=== PATIENT | male | born 2000 | race American Indian/Alaskan Native ===

== ENCOUNTER 2020-10-07 21:40 | Emergency (ER) | payer OTHER ==
[2020-10-07] MEDS ORDERED: IBUPROFEN 400 MG TAB PO ONE (22:26)
[2020-10-07] MEDS ORDERED: ACETAMINOPHEN 325 MG TAB PO ONE (22:26)
--- NOTE | 2020-10-07 22:28 | Emergency Department Report ---
ED General Adult HPI - General Chief complaint: Adult Asthma Stated complaint: asthma PUI?: Yes Time Seen by Provider: 10/07/20 21:56 Source: patient, EMS ( EMS documentation not available at time of chart dictation ), RN notes reviewed Mode of arrival: Stretcher Limitations: No Limitations - History of Present Illness Initial comments: The patient was evaluated in the emergency department for symptoms described in the history of present illness. He/she was evaluated in the context of the global COVID-19 pandemic, which necessitated consideration that the patient might be at risk for infection with the virus that causes COVID-19. Institutional protocols and algorithms that pertain to the evaluation of patients at risk for COVID-19 are in a state of rapid change based on information released by regulatory bodies including the CDC and federal and state organizations. These policies and algorithms were followed during the patient's care in the emergency department. Please note that these policies, procedures and recommendations changed on a rapid basis. During the entire history and physical examination, I had on complete personal protective equipment. This is a 20-year-old gentleman. He is not known to myself previously. He reports a history of asthma, diagnosed while a child, no intubations. He also h as a history of intermittent tobacco use, and anxiety. He is brought to the hospital by EMS with a complaint of resolved anxiety, and shortness of breath. Patient was given albuterol prior to my evaluation. The patient denies headache, neck pain, abdominal pain, vomiting, diaphoresis, he denies travel, surgery, leg pain and leg swelling, and he denies DVT and pulmonary embolism risk factors. He has intermittent chronic central chest pressure, which does not radiate to the back, arms or neck. He states that he feels mostly back to his baseline, only a little bit anxious at this time. The patient does not have a local primary care doctor. The patient denies loss of taste, loss of smell, diarrhea, body aches, and Covid exposure -: Sudden (Symptoms started suddenly today, but patient has been having intermittent chest discomfort for weeks and months) Location: chest Quality: aching Consistency: intermittent Improves with: medication, rest Worsens with: other (Anxiety) - Related Data Previous Rx's Medication Instructions Recorded Last Taken Type Acetaminophen [Non-Aspirin Extra 500 mg PO Q6HR PRN #30 tablet 10/07/20 Unknown Rx Strength] Albuterol Sulfate [Proair 90 mcg IH Q4HR PRN #2 aer.pow.ba 10/07/20 Unknown Rx Respiclick] Ibuprofen [Motrin] 600 mg PO Q8H PRN #30 tablet 10/07/20 Unknown Rx Allergies Allergy/AdvReac Type Severity Reaction Status Date / Time No Known Allergies Allergy Unverified 10/07/20 21:46 ED Review of Systems ROS: Stated complaint: BENNY Other details as noted in HPI Constitutional: denies: fever Eyes: denies: eye discharge ENT: denies: congestion Respiratory: shortness of breath, wheezing Cardiovascular: chest pain Gastrointestinal: denies: abdominal pain Musculoskeletal: myalgia (Chronic knee pain) Psychiatric: anxiety Hematological/Lymphatic: denies: easy bleeding ED Past Medical Hx - Past Medical History Previous Medical History?: Yes Hx Asthma: Yes - Surgical History Past Surgical History?: No - Social History Smoking Status: Current Every Day Smoker - Medications Home Medications: Home Medications Medication Instructions Recorded Confirmed Last Taken Type Acetaminophen [Non-Aspirin Extra 500 mg PO Q6HR PRN #30 tablet 10/07/20 Unknown Rx Strength] Albuterol Sulfate [Proair 90 mcg IH Q4HR PRN #2 aer.pow.ba 10/07/20 Unknown Rx Respiclick] Ibuprofen [Motrin] 600 mg PO Q8H PRN #30 tablet 10/07/20 Unknown Rx ED Physical Exam - General Limitations: No Limitations General appearance: alert, in no apparent distress - Head Head exam: Present: atraumatic, normocephalic - Eye Eye exam: Present: normal appearance, EOMI. Absent: nystagmus - ENT ENT exam: Present: normal exam, normal orophraynx, mucous membranes moist, normal external ear exam - Neck Neck exam: Present: normal inspection, full ROM. Absent: tenderness, meningism us - Respiratory Respiratory exam: Present: normal lung sounds bilaterally, chest wall tenderness. Absent: respiratory distress, wheezes, rales, rhonchi, stridor, accessory muscle use, decreased breath sounds, prolonged expiratory - Cardiovascular Cardiovascular Exam: Present: regular rate, normal rhythm, normal heart sounds. Absent: bradycardia, tachycardia, irregular rhythm, systolic murmur, diastolic murmur, rubs, gallop - GI/Abdominal GI/Abdominal exam: Present: soft. Absent: distended, tenderness, guarding, rebound, rigid, pulsatile mass - Rectal Rectal exam: Present: deferred - Extremities Exam Extremities exam: Present: normal inspection, full ROM, other (2+ pulses noted in the bilateral upper and lower extremities. There is no palpable cord. negative Homans sign. Muscular compartments are soft. The pelvis is stable.). Absent: pedal edema, calf tenderness - Back Exam Back exam: Present: normal inspection, full ROM. Absent: tenderness, CVA tenderness (R), CVA tenderness (L), paraspinal tenderness, vertebral tenderness - Neurological Exam Neurological exam: Present: alert, normal gait, other (No facial droop. Tongue midline. Extraocular movements intact bilaterally. Facial sensation intact to light touch in V1, V2, V3 distribution bilaterally. 5 and a 5 strength in 4 extremities. Sensation intact to light touch in 4 extremities.). Absent: motor sensory deficit - Psychiatric Psychiatric exam: Present: anxious - Skin Skin exam: Present: warm, dry, intact, normal color. Absent: rash ED Course Vital Signs 10/07/20 10/07/20 10/07/20 21:46 22:16 22:30 Temperature 98.4 F Pulse Rate 83 79 75 Pulse Rate [ Throughout] Respiratory 18 13 12 Rate Respiratory Rate [ Throughout] Blood Pressure 146/78 132/72 142/85 O2 Sat by Pulse 98 98 97 Oximetry O2 Sat by Pulse Oximetry [ Digit-Finger] 10/07/20 10/07/20 10/07/20 22:46 23:00 23:45 Temperature Pulse Rate 74 78 Pulse Rate [ Throughout] Respiratory 13 17 18 Rate Respiratory Rate [ Throughout] Blood Pressure 135/81 141/82 O2 Sat by Pulse 97 98 97 Oximetry O2 Sat by Pulse Oximetry [ Digit-Finger] 10/08/20 10/08/20 00:51 01:37 Temperature Pulse Rate Pulse Rate [ 68 Throughout] Respiratory Rate Respiratory 20 Rate [ Throughout] Blood Pressure O2 Sat by Pulse Oximetry O2 Sat by Pulse 99 Oximetry [ Digit-Finger] - Reevaluation(s) Reevaluation #1: 10/07/20 23:43 Differential diagnosis, including but not limited to: Reactive airway disease, costochondritis, COVID-19, anxiety, pneumonia, general medical examination Assessment and plan: 20-year-old gentleman, who is not currently tachycardic, tachypneic or hypoxic, denies DVT and pulmonary embolism risk factors, who is low risk by Wells criteria for pulmonary embolism, who is PERC negative, not hypoxic at this time, saturating at 99% on room air, with a benign and unremarkable physical examination, and clear x-ray of the chest. We will obtain EKG. We will treat his pain. Patient reassessed multiple times, speaking on his cell phone, does not appear to be in any acute distress. Ambulatory trial reviewed and appreciated, patient not significantly symptomatic. Patient suitable to be discharged with as needed albuterol, no wheezing at this time, do not see indication for steroids, he can purchase an [id number] [facility] pulse oximeter device, self monitor symptoms. 10/08/20 00:07 Patient resting comfortably in stretcher. He is saturating at 99% on room air. EKG shows rightward axis deviation. I have very low suspicion for pulmonary embolism, however, given rightward axis deviation, history of shortness of b reath, will check laboratory studies including D-dimer to risk stratify for pulmonary embolism. Discussed this with the patient. He has articulated understanding. 10/08/20 01:04 Patient walking around the emergency room. He does not appear to be in any acute distress. Laboratory studies pending. 10/08/20 01:36 patient playing on cell phone no distress vitals unremarkable at this time d dimer pending. delay secondary to instrument qc at this time 10/08/20 01:39 Final reevaluation. D-dimer negative. Patient suitable for discharge - Pulse Oximetry Interpretation Digit-Finger Initial Pulse Oximetry Readin O2 Sat by Pulse Oximetry: 99 Actions Taken: none ED Medical Decision Making - Lab Data Result diagrams: 10/08/20 00:12 10/08/20 00:12 Vital Signs 10/07/20 10/07/20 10/07/20 21:46 22:16 22:30 Temperature 98.4 F Pulse Rate 83 79 75 Respiratory 18 13 12 Rate Blood Pressure 146/78 132/72 142/85 O2 Sat by Pulse 98 98 97 Oximetry 10/07/20 10/07/20 22:46 23:00 Temperature Pulse Rate 74 78 Respiratory 13 17 Rate Blood Pressure 135/81 141/82 O2 Sat by Pulse 97 98 Oximetry - EKG Data -: EKG Interpreted by De EKG shows normal: sinus rhythm Rate: normal - EKG Data When compared to previous EKG there are: previous EKG unavailable 10/08/20 00:07 EKG interpreted 23: 46 Sinus rhythm, 66 bpm. Rightward axis deviation. High left ventricular voltage. Intervals within normal limits. There is no prior for comparison. The EKG is not a STEMI peer - Radiology Data Radiology results: pending, report reviewed, image reviewed X-ray of the chest is negative for acute disease CHEST PA AND LATERAL VIEWS INDICATION: chest wall pain. COMPARISON: None FINDINGS: Support devices: None Heart: Normal Lungs/Pleura: No acute pulmonary or pleural findings. IMPRESSION: 1. No significant abnormality. Signer Name: Serafin Galloway MD Signed: 10/07/2020 9:58 PM Workstation Name: [id number] Critical care attestation.: If time is entered above; I have spent that time in minutes in the direct care of this critically ill patient, excluding procedure time. ED Disposition Clinical Impression: History of reactive airway disease, History of chest pain Disposition: TO HOME OR SELFCARE Is pt being admited?: No Does the pt Need Aspirin: No Condition: Good Instructions: Asthma, Adult, [id number] Additional Instructions: Take the medications as needed and directed. Make certain to wash hands frequently, thoroughly, and often. Please follow-up with an outpatient primary care doctor within the next 5 to 7 days. Avoid consumption of tobacco, and smoke products. Recommend outpatient testing for COVID-19. We also recommend that the patient purchase an [id number] pulse oximeter, to monitor home oxygen saturations. He may purchase a device like this on [employer], or through a local medical supply store, such as [employer], or a local pharmacy. Please return to the emergency room right away with new pain, worsened pain, m igration of pain, projectile vomiting, change in mental status, confusion, inability to tolerate liquid feeds, new, worsened or different symptoms not present on the initial emergency room evaluation. Recommend that patient wear a mask when not alone. Prescriptions: Ibuprofen [Motrin] 600 mg PO Q8H PRN #30 tablet PRN Reason: Pain Acetaminophen [Non-Aspirin Extra Strength] 500 mg PO Q6HR PRN #30 tablet PRN Reason: Pain , Severe (7-10) Albuterol Sulfate [Proair Respiclick] 90 mcg IH Q4HR PRN #2 aer.pow.ba PRN Reason: Wheezing Referrals: FRANCISCO KWON MD [Staff Physician] - 3-5 Days [facility] [Provider Group] - 3-5 Days Heart Score - HEART Score History: Slightly suspicious EKG: Non-specific Age: < 45 Risk factors: 1-2 risk factors Troponin: < normal limit HEART Score: 2 - EKG Read Time Time EKG Completed: 23:43 EKG Read Time: 23:46 - Critical Actions Critical Actions: 0-3 pts:0.9-1.7%risk of adverse cardiac event.Candidate for discharge
--- NOTE | 2020-10-07 23:02 | XRay Report ---
CHEST PA AND LATERAL VIEWS INDICATION: chest wall pain. COMPARISON: None FINDINGS: Support devices: None Heart: Normal Lungs/Pleura: No acute pulmonary or pleural findings. IMPRESSION: 1. No significant abnormality. Signer Name: Serafin Galloway MD Signed: 10/07/2020 10:58 PM Workstation Name: [id number]
[2020-10-08] MEDS ORDERED: ALBUTEROL 2.5 MG/3 ML NEBU IH ONE (00:06)
[2020-10-08 01:02] LABS: Hematocrit 45.2 % (35.5-45.6); Hemoglobin 14.7 gm/dl (11.8-15.2); Mean Corpuscular HGB Conc 33 % (32-34); Mean Corpuscular Volume 88 fl (84-94); Platelet Count 321 K/mm3 (140-440); Red Blood Count 5.14 M/mm3 (3.65-5.03); Red Cell Distribution Width 13.3 % (13.2-15.2)
[2020-10-08 01:07] LABS: BUN/Creatinine Ratio 12; Blood Urea Nitrogen 12 mg/dL (9-20); Hemolysis Index 4
[2020-10-08] MEDS ORDERED: POTASSIUM CHLORIDE ER 20 MEQ TAB PO ONE (01:16)
[2020-10-08 01:45] VITALS: BP 124/73
--- NOTE | 2020-10-09 10:45 | Electrocardiograph Report ---
[facility] Test Date: 2020-10-07 Test Time: 23:01:56 Pat Name: PATY ROACH Department: Room: Gender: M [employer] Operator: PIETRO : 2000 Requested By: MARIANELA ANAND Order Number: [id number] Reading MD: Martin Samayoa Measurements Intervals Beatty Rate: 71 P: 72 MO: 154 QRS: 100 QRSD: 86 T: 65 QT: 379 QTc: 414 Interpretive Statements Sinus rhythm ST elev, probable normal early repol pattern No previous ECG available for comparison Electronically Signed On 10-09-2020 10:45:06 EDT by Martin Samayoa
== END 2020-10-08 01:44 | disposition home or self-care (01) ==
LOC: ED 21:40
DX: J45.909 Unspecified asthma, uncomplicated (principal); R07.89 Other chest pain; F17.200 Nicotine dependence, unspecified, uncomplicated; Z79.1 Long term (current) use of non-steroidal anti-inflammatories (NSAID); Z79.899 Other long term (current) drug therapy
CPT/HCPCS: 36415; 71046; 80048; 82550; 83735; 84484; 85027; 85379; 85610; 93005; 94640; 94644

== ENCOUNTER 2020-10-28 14:13 | Observation (INO) | payer OTHER ==
[~2020-10-28 14:13] MED LIST: MAGNESIUM SULFATE 2 GM/50 ML BAG IV ONE; methylPREDNISolone Sod Succinate 125 MG/2 ML INJ ONE
[2020-10-28] MEDS ORDERED: EPINEPHrine/PF 1 MG/1 ML INJ SUB-Q ONE (14:19)
[2020-10-28] MEDS ORDERED: MAGNESIUM SULFATE 2 GM/50 ML BAG IV ONE (14:19)
[2020-10-28] MEDS ORDERED: IPRATROPIUM/ALBUTEROL SULFATE 3 ML AMPUL.NEB IH ONE (14:19)
[2020-10-28] MEDS ORDERED: ALBUTEROL 2.5 MG/3 ML NEBU IH ONE ×2 (14:19→15:16)
[2020-10-28] MEDS ORDERED: methylPREDNISolone Sod Succinate 125 MG/2 ML INJ IV ONE (14:19)
--- NOTE | 2020-10-28 15:18 | XRay Report ---
CHEST 1 VIEW 10/28/2020 2:12 PM INDICATION / CLINICAL INFORMATION: Severe dyspnea, asthma. COMPARISON: 2 views of the chest from 10/07/2020. FINDINGS: SUPPORT DEVICES: None. HEART / MEDIASTINUM: No significant abnormality. LUNGS / PLEURA: Clear lungs. No significant pleural effusion. No pneumothorax. ADDITIONAL FINDINGS: No significant additional findings. IMPRESSION: 1. No acute abnormality of the chest. Signer Name: Tony Fox MD Signed: 10/28/2020 3:14 PM Workstation Name: [id number]
[2020-10-28 15:58] LABS: Basophils # (Auto) 0.1 K/mm3 (0.0-0.1); Basophils % (Auto) 0.6 % (0.0-1.8); Eosinophils # (Auto) 0.5 K/mm3 (0.0-0.4); Eosinophils % (Auto) 3.1 % (0.0-4.3); Hematocrit 45.7 % (35.5-45.6); Lymphocytes # (Auto) 1.9 K/mm3 (1.2-5.4); Mean Corpuscular HGB Conc 33 % (32-34); Mean Corpuscular Volume 87 fl (84-94); Monocytes # (Auto) 1.4 K/mm3 (0.0-0.8); Monocytes % (Auto) 9.8 % (0.0-7.3); Platelet Count 412 K/mm3 (140-440); Red Blood Count 5.24 M/mm3 (3.65-5.03); Red Cell Distribution Width 12.8 % (13.2-15.2)
[2020-10-28 16:03] LABS: BUN/Creatinine Ratio 8; Blood Urea Nitrogen 8 mg/dL (9-20); Calcium 8.9 mg/dL (8.4-10.2); Hemolysis Index 54
--- NOTE | 2020-10-28 17:21 | Emergency Department Report ---
ED Shortness of Breath HPI - General Chief Complaint: Adult Asthma Stated Complaint: ASTHMA Time Seen by Provider: 10/28/20 14:19 Source: patient Mode of arrival: Ambulatory Limitations: No Limitations - History of Present Illness Initial Comments: Chief complaint: Asthma attack HPI: This is a 20-year-old male with history of asthma no previous history of intubation who presents with severe shortness of breath wheezing gradual onset several days ago. History limited due to severe shortness of breath MD Complaint: shortness of breath, "asthma attack" -: Gradual, days(s) (Several days) Severity: severe Consistency: constant Improves With: nothing Worsens With: exertion Known History Of: asthma - Related Data Previous Rx's Medication Instructions Recorded Last Taken Type Acetaminophen [Non-Aspirin Extra 500 mg PO Q6HR PRN #30 tablet 10/07/20 Unknown Rx Strength] Albuterol Sulfate [Proair 90 mcg IH Q4HR PRN #2 aer.pow.ba 10/07/20 Unknown Rx Respiclick] Ibuprofen [Motrin] 600 mg PO Q8H PRN #30 tablet 10/07/20 Unknown Rx Allergies Allergy/AdvReac Type Severity Reaction Status Date / Time No Known Allergies Allergy Unverified 10/07/20 21:46 ED Review of Systems ROS: Stated complaint: ASTHMA Other details as noted in HPI Comment: Unobtainable due to pts medical conditions (Limited due to severe work of breathing severe shortness of breath) ED Past Medical Hx - Past Medical History Previous Medical History?: Yes Hx Asthma: Yes (Has not been previously intubated) - Social History Smoking Status: Unknown if ever smoked - Medications Home Medications: Home Medications Medication Instructions Recorded Confirmed Last Taken Type Acetaminophen [Non-Aspirin Extra 500 mg PO Q6HR PRN #30 tablet 10/07/20 Unknown Rx Strength] Albuterol Sulfate [Proair 90 mcg IH Q4HR PRN #2 aer.pow.ba 10/07/20 Unknown Rx Respiclick] Ibuprofen [Motrin] 600 mg PO Q8H PRN #30 tablet 10/07/20 Unknown Rx ED Physical Exam - General Limitations: No Limitations General appearance: alert, in distress, other (Tripod position, unable to speak sentences) - Head Head exam: Present: atraumatic, normocephalic - Eye Eye exam: Present: normal appearance - ENT ENT exam: Present: mucous membranes moist - Neck Neck exam: Present: normal inspection - Respiratory Respiratory exam: Present: respiratory distress, wheezes, accessory muscle use, decreased breath sounds, prolonged expiratory. Absent: rales, rhonchi - Cardiovascular Cardiovascular Exam: Present: normal rhythm, tachycardia, normal heart sounds. Absent: systolic murmur, diastolic murmur, rubs, gallop - GI/Abdominal GI/Abdominal exam: Present: soft, normal bowel sounds. Absent: distended, tend erness, guarding, rebound - Rectal Rectal exam: Present: deferred - Extremities Exam Extremities exam: Present: normal inspection - Neurological Exam Neurological exam: Present: alert, oriented X3 - Psychiatric Psychiatric exam: Present: anxious - Skin Skin exam: Present: warm, intact, normal color, other (Clammy to touch). Absent: rash ED Course Vital Signs 10/28/20 10/28/20 10/28/20 14:15 14:18 14:30 Temperature Pulse Rate 96 H 118 H Pulse Rate [ 115 H Anterior Bilateral Throughout] Respiratory 15 36 H Rate Respiratory 26 H Rate [Anterior Bilateral Throughout] Blood Pressure 123/84 Blood Pressure [Left] O2 Sat by Pulse 99 96 Oximetry 10/28/20 10/28/20 10/28/20 14:46 14:52 15:00 Temperature 97.8 F Pulse Rate 119 H 122 H Pulse Rate [ Anterior Bilateral Throughout] Respiratory 18 22 26 H Rate Respiratory Rate [Anterior Bilateral Throughout] Blood Pressure 120/68 125/60 Blood Pressure 120/68 [Left] O2 Sat by Pulse 98 98 97 Oximetry 10/28/20 10/28/20 10/28/20 15:16 15:28 15:30 Temperature Pulse Rate Pulse Rate [ 122 H Anterior Bilateral Throughout] Respiratory Rate Respiratory 24 Rate [Anterior Bilateral Throughout] Blood Pressure 121/76 127/77 Blood Pressure [Left] O2 Sat by Pulse 92 98 Oximetry 10/28/20 10/28/20 10/28/20 15:46 16:00 16:15 Temperature Pulse Rate Pulse Rate [ Anterior Bilateral Throughout] Respiratory Rate Respiratory Rate [Anterior Bilateral Throughout] Blood Pressure 137/59 137/59 103/60 Blood Pressure [Left] O2 Sat by Pulse 97 98 100 Oximetry 10/28/20 10/28/20 10/28/20 16:23 16:30 16:45 Temperature Pulse Rate 110 H Pulse Rate [ Anterior Bilateral Throughout] Respiratory 18 Rate Respiratory Rate [Anterior Bilateral Throughout] Blood Pressure 112/56 109/50 Blood Pressure 103/60 [Left] O2 Sat by Pulse 100 92 87 Oximetry 10/28/20 17:00 Temperature Pulse Rate Pulse Rate [ Anterior Bilateral Throughout] Respiratory Rate Respiratory Rate [Anterior Bilateral Throughout] Blood Pressure 109/50 Blood Pressure [Left] O2 Sat by Pulse 90 Oximetry ED Medical Decision Making - Lab Data Result diagrams: 10/28/20 15:05 10/28/20 15:05 Laboratory Results - last 24 hr 10/28/20 10/28/20 15:05 15:05 WBC 14.7 H RBC 5.24 H Hgb 15.0 Hct 45.7 H MCV 87 MCH 29 MCHC 33 RDW 12.8 L Plt Count 412 Lymph % (Auto) 13.0 L [place] % (Auto) 9.8 H Eos % (Auto) 3.1 Baso % (Auto) 0.6 Lymph # (Auto) 1.9 [place] # (Auto) 1.4 H Eos # (Auto) 0.5 H Baso # (Auto) 0.1 Seg Neutrophils % 73.5 H Seg Neutrophils # 10.8 H Sodium 138 Potassium 3.2 L Chloride 100.6 Carbon Dioxide 24 Anion Gap 17 BUN 8 L Creatinine 1.0 Estimated GFR > 60 BUN/Creatinine Ratio 8 Glucose 107 H Calcium 8.9 - Radiology Data Radiology results: report reviewed Chest radiograph: No acute findings according to radiology impression - Medical Decision Making Status asthmaticus: Patient slowly improving with continuous nebulizer therapy. Oxygen 91% after first continuous nebulizer therapy. He required subcutaneous epinephrine, IV Solu-Medrol, magnesium. Admitted to the hospital service [facility] in fair condition. CBC chemistry within normal limits. Chest radiograph unremarkable Critical care attestation.: If time is entered above; I have spent that time in minutes in the direct care of this critically ill patient, excluding procedure time. ED Disposition Clinical Impression: Status asthmaticus, Acute respiratory failure with hypoxia Disposition: OP ADMIT IP TO THIS HOSP Is pt being admited?: Yes Does the pt Need Aspirin: No Condition: Fair
[2020-10-28] MEDS ORDERED: IPRATROPIUM 0.02% NEBU 2.5 ML IH ONE (18:31)
[2020-10-28] MEDS ORDERED: oxyCODONE /ACETAMINOPHEN 5-325MG TAB PO PRN (21:19)
[2020-10-28] MEDS ORDERED: HYDROmorphone 1 MG/1 ML INJ IV PRN (21:19)
[2020-10-28] MEDS ORDERED: ACETAMINOPHEN 325 MG TAB PO PRN (21:19)
[2020-10-28] MEDS ORDERED: ONDANSETRON 4 MG/2 ML INJ IV PRN (21:19)
[2020-10-28] MEDS ORDERED: IPRATROPIUM/ALBUTEROL SULFATE 3 ML AMPUL.NEB IH PRN (21:22)
--- NOTE | 2020-10-28 21:27 | History and Physical Report ---
History of Present Illness Date of examination: 10/28/20 Date of admission: 10/28/20 17:22 Chief complaint: Severe shortness of breath and wheezing for 3 days History of present illness: 20-year-old man with history of asthma and no previous history of intubations an d not taking any medications comes in for severe shortness of breath and wheezing for the last 3 days. Unable to brace. As dry cough. Sometimes cough is further mucus sputum. No fever or chills. No exposure to coronavirus. Not taking any medications. Not on Singulair for prevention of asthma. Patient only has albuterol inhaler at home. Is not on any nebulizers at home. No exacerbating or relieving factors. - Past Medical History Previous Medical History?: Yes -Asthma: Yes (Has not been previously intubated) Surgical history none. - Social History Smoking Status: Unknown if ever smoked Family history Htn - Medications Home Medications: Home Medications Medication Instructions Recorded Confirmed Last Taken Type Acetaminophen [Non-Aspirin Extra 500 mg PO Q6HR PRN #30 tablet 10/07/20 Unknown Rx Strength] Albuterol Sulfate [Proair 90 mcg IH Q4HR PRN #2 aer.pow.ba 10/07/20 Unknown Rx Respiclick] Ibuprofen [Motrin] 600 mg PO Q8H PRN #30 tablet 10/07/20 Unknown Rx Review of systems Constitutional no weight loss or weight gain no fever or chills HEENT no sore throat no post nasal drip no diplopia Neck no neck stiffness no lymph gland enlargement Chest and lungs severe shortness of breath and wheezing. 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 Skin no rash no itching Psychiatric no depression no homicidal or suicidal tendencies Hematologic no lymphedema or bruising Endocrine no polydipsia no polyuria no cold intolerance no heat intolerance Medications and Allergies Allergies Allergy/AdvReac Type Severity Reaction Status Date / Time No Known Allergies Allergy Unverified 10/07/20 21:46 Home Medications Medication Instructions Recorded Confirmed Last Taken Type Acetaminophen [Non-Aspirin Extra 500 mg PO Q6HR PRN #30 tablet 10/07/20 Unknown Rx Strength] Albuterol Sulfate [Proair 90 mcg IH Q4HR PRN #2 aer.pow.ba 10/07/20 Unknown Rx Respiclick] Ibuprofen [Motrin] 600 mg PO Q8H PRN #30 tablet 10/07/20 Unknown Rx Exam - Constitutional Vitals: Temp Pulse Resp BP Pulse Ox 97.8 F 107 H 28 H 116/58 97 10/28/20 14:46 10/28/20 19:00 10/28/20 19:00 10/28/20 19:00 10/28/20 19:00 General appearance: Present: severe distress, well-nourished - EENT Eyes: Present: PERRL ENT: hearing intact, clear oral mucosa - Neck Neck: Present: supple, normal ROM - Respiratory Respiratory effort: normal Respiratory: bilateral: diminished, rhonchi, wheezing - Cardiovascular Heart rate: 78 Rhythm: regular Heart Sounds: Present: S1 & S2. Absent: rub, click - Extremities Extremities: pulses symmetrical, No edema Peripheral Pulses: within normal limits - Abdominal General gastrointestinal: Present: soft, non-tender, non-distended, normal bowel sounds Male genitourinary: Present: normal - Integumentary Integumentary: Present: clear, warm, dry - Musculoskeletal Musculoskeletal: gait normal, strength equal bilaterally - Psychiatric Psychiatric: appropriate mood/affect, intact judgment & insight - Neurologic Neurologic: CNII-XII intact, moves all extremities Results - Labs CBC & Chem 7: 10/29/20 04:18 10/29/20 04:18 Labs: Laboratory Last Values WBC 14.7 K/mm3 (4.5-11.0) H 10/28/20 15:05 RBC 5.24 M/mm3 (3.65-5.03) H 10/28/20 15:05 Hgb 15.0 gm/dl (11.8-15.2) 10/28/20 15:05 Hct 45.7 % (35.5-45.6) H 10/28/20 15:05 MCV 87 fl (84-94) 10/28/20 15:05 MCH 29 pg (28-32) 10/28/20 15:05 MCHC 33 % (32-34) 10/28/20 15:05 RDW 12.8 % (13.2-15.2) L 10/28/20 15:05 Plt Count 412 K/mm3 (140-440) 10/28/20 15:05 Lymph % (Auto) 13.0 % (13.4-35.0) L 10/28/20 15:05 [place] % (Auto) 9.8 % (0.0-7.3) H 10/28/20 15:05 Eos % (Auto) 3.1 % (0.0-4.3) 10/28/20 15:05 Baso % (Auto) 0.6 % (0.0-1.8) 10/28/20 15:05 Lymph # (Auto) 1.9 K/mm3 (1.2-5.4) 10/28/20 15:05 [place] # (Auto) 1.4 K/mm3 (0.0-0.8) H 10/28/20 15:05 Eos # (Auto) 0.5 K/mm3 (0.0-0.4) H 10/28/20 15:05 Baso # (Auto) 0.1 K/mm3 (0.0-0.1) 10/28/20 15:05 Seg Neutrophils % 73.5 % (40.0-70.0) H 10/28/20 15:05 Seg Neutrophils # 10.8 K/mm3 (1.8-7.7) H 10/28/20 15:05 Sodium 138 mmol/L (137-145) 10/28/20 15:05 Potassium 3.2 mmol/L (3.6-5.0) L 10/28/20 15:05 Chloride 100.6 mmol/L (98-107) 10/28/20 15:05 Carbon Dioxide 24 mmol/L (22-30) 10/28/20 15:05 Anion Gap 17 mmol/L 10/28/20 15:05 BUN 8 mg/dL (9-20) L 10/28/20 15:05 Creatinine 1.0 mg/dL (0.8-1.3) 10/28/20 15:05 Estimated GFR > 60 ml/min 10/28/20 15:05 BUN/Creatinine Ratio 8 % 10/28/20 15:05 Glucose 107 mg/dL (75-100) H 10/28/20 15:05 Calcium 8.9 mg/dL (8.4-10.2) 10/28/20 15:05 Short CBC 10/28/20 10/29/20 Range/Units 15:05 04:18 WBC 14.7 H 10.9 (4.5-11.0) K/mm3 Hgb 15.0 13.7 (11.8-15.2) gm/dl Hct 45.7 H 40.6 (35.5-45.6) % Plt Count 412 369 (140-440) K/mm3 BMP 10/28/20 10/29/20 15:05 04:18 Sodium 138 138 Potassium 3.2 L 4.2 D Chloride 100.6 103.8 Carbon Dioxide 24 25 BUN 8 L 9 Creatinine 1.0 0.9 Glucose 107 H 136 H Calcium 8.9 9.1 Liver Function 10/29/20 Range/Units 04:18 Total Bilirubin 0.30 (0.1-1.2) mg/dL AST 16 (5-40) units/L ALT 11 (7-56) units/L Alkaline Phosphatase 74 (35-129) units/L Albumin 4.0 (3.9-5) g/dL - Imaging and Cardiology Chest x-ray: report reviewed (No acute findings) Assessment and Plan Advance Directives: Yes (Full code) VTE prophylaxis?: Chemical Plan of care discussed with patient/family: Yes - Patient Problems (1) Acute respiratory failure with hypoxia Current Visit: Yes Status: Acute Plan to address problem: Patient is on BiPAP Very tachypneic with respiratory rate of 36 Intubation if necessary (2) Status asthmaticus Current Visit: Yes Status: Acute Qualifiers: Asthma severity: severe Plan to address problem: Patient initiated on IV Solu-Medrol IV Levaquin and duo nebs [id number] and every 3 as needed Patient also initiated on Singulair for prevention of asthma attacks Patient will discharge on same and nebulizer machine with albuterol solution (3) DVT prophylaxis Current Visit: Yes Status: Acute Plan to address problem: On heparin and GI prophylaxis of
[2020-10-28] MEDS ORDERED: MONTELUKAST 10 MG TAB PO SCH (22:00)
[2020-10-28] MEDS: SODIUM CHLORIDE 0.9% 1000 ML 1,000 ML IV SCH (22:58)
[2020-10-28] MEDS: HEPARIN 5,000 UNIT/1 ML VIAL SUB-Q SCH (22:59)
[2020-10-28] MEDS: FAMOTIDINE 20 MG/2 ML INJ IV SCH (22:59)
[2020-10-28] MEDS: methylPREDNISolone Sod Succinate 40 MG/1 ML INJ IV SCH (22:59)
[2020-10-28] MEDS ORDERED: ALBUTEROL 2.5 MG/3 ML NEBU IH PRN (23:12)
[2020-10-28] MEDS: IPRATROPIUM/ALBUTEROL SULFATE 3 ML AMPUL.NEB IH SCH (23:30)
[2020-10-29 04:45] LABS: Hematocrit 40.6 % (35.5-45.6); Hemoglobin 13.7 gm/dl (11.8-15.2); Mean Corpuscular HGB Conc 34 % (32-34); Mean Corpuscular Volume 86 fl (84-94); Platelet Count 369 K/mm3 (140-440); Red Cell Distribution Width 13.1 % (13.2-15.2)
[2020-10-29 05:09] LABS: Alanine Aminotransferase 11 units/L (7-56); BUN/Creatinine Ratio 10; Blood Urea Nitrogen 9 mg/dL (9-20); Calcium 9.1 mg/dL (8.4-10.2); Hemolysis Index 1
[2020-10-29] MEDS: methylPREDNISolone Sod Succinate 40 MG/1 ML INJ IV SCH ×2 (06:13→13:00)
[2020-10-29 06:19] LABS: Platelet Estimate Consistent w Auto; Poikilocytosis 1+; Target Cells 1+; Total Cells Counted 100
[2020-10-29] MEDS: IPRATROPIUM/ALBUTEROL SULFATE 3 ML AMPUL.NEB IH SCH ×4 (07:29→21:33)
[2020-10-29] MEDS ORDERED: IPRATROPIUM/ALBUTEROL SULFATE 3 ML AMPUL.NEB IH SCH (08:00)
--- NOTE | 2020-10-29 11:14 | Progress Note ---
Assessment and Plan Assessment and plan: (1) Acute respiratory failure with hypoxia Current Visit: Yes Status: Acute Plan to address problem: Patient is on BiPAP Very tachypneic with respiratory rate of 36 Intubation if necessary (2) Status asthmaticus Current Visit: Yes Status: Acute Qualifiers: Asthma severity: severe Plan to address problem: Patient initiated on IV Solu-Medrol IV Levaquin and duo nebs [id number] and every 3 as needed Patient also initiated on Singulair for prevention of asthma attacks Patient will discharge on same and nebulizer machine with albuterol solution (3) DVT prophylaxis Current Visit: Yes Status: Acute Plan to address problem: On heparin and GI prophylaxis 10/29/2020 -Patient is on 3 L of oxygen, patient has a lot of wheezing. -Patient will be discharged tomorrow if continue to improve. History Interval history: Patient was seen and evaluated this morning Patient was on 3 L of oxygen He said he is feeling better today Hospitalist Physical - Physical exam Narrative exam: Patient is on 3 L of oxygen. The patient appeared well nourished and normally developed. Vital signs as documented. Head exam is unremarkable. No scleral icterus . Neck is without jugular venous distension, thyromegaly, or carotid bruits. Lungs wheezing all over the chest. Cardiac exam reveals regular rate and Rhythm. Abdominal exam reveals normal bowel sounds, nontender, no organomegaly. Extremities are nonedematous and both femoral and pedal pulses are normal. 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 No focal weakness. - Constitutional Vitals: Temp Pulse Resp BP Pulse Ox 98.4 F 82 18 101/55 95 10/29/20 05:06 10/29/20 07:30 10/29/20 07:30 10/29/20 05:06 10/29/20 08:25 General appearance: Present: severe distress, well-nourished Results - Labs CBC & Chem 7: 10/29/20 04:18 10/29/20 04:18 Labs: Laboratory Last Values WBC 10.9 K/mm3 (4.5-11.0) 10/29/20 04:18 RBC 4.70 M/mm3 (3.65-5.03) 10/29/20 04:18 Hgb 13.7 gm/dl (11.8-15.2) 10/29/20 04:18 Hct 40.6 % (35.5-45.6) 10/29/20 04:18 MCV 86 fl (84-94) 10/29/20 04:18 MCH 29 pg (28-32) 10/29/20 04:18 MCHC 34 % (32-34) 10/29/20 04:18 RDW 13.1 % (13.2-15.2) L 10/29/20 04:18 Plt Count 369 K/mm3 (140-440) 10/29/20 04:18 Lymph % (Auto) 13.0 % (13.4-35.0) L 10/28/20 15:05 [place] % (Auto) 9.8 % (0.0-7.3) H 10/28/20 15:05 Eos % (Auto) 3.1 % (0.0-4.3) 10/28/20 15:05 Baso % (Auto) 0.6 % (0.0-1.8) 10/28/20 15:05 Lymph # (Auto) 1.9 K/mm3 (1.2-5.4) 10/28/20 15:05 [place] # (Auto) 1.4 K/mm3 (0.0-0.8) H 10/28/20 15:05 Eos # (Auto) 0.5 K/mm3 (0.0-0.4) H 10/28/20 15:05 Baso # (Auto) 0.1 K/mm3 (0.0-0.1) 10/28/20 15:05 Add Manual Diff Complete 10/29/20 04:18 Total Counted 100 10/29/20 04:18 Seg Neutrophils % Tenter Feeder 10/29/20 04:18 Seg Neuts % (Manual) 85.0 % (40.0-70.0) H 10/29/20 04:18 Lymphocytes % (Manual) 13.0 % (13.4-35.0) L 10/29/20 04:18 Monocytes % (Manual) 2.0 % (0.0-7.3) 10/29/20 04:18 Nucleated RBC % Not Reportable 10/29/20 04:18 Seg Neutrophils # 10.8 K/mm3 (1.8-7.7) H 10/28/20 15:05 Seg Neutrophils # Man 9.3 K/mm3 (1.8-7.7) H 10/29/20 04:18 Band Neutrophils # 0.0 K/mm3 10/29/20 04:18 Lymphocytes # (Manual) 1.4 K/mm3 (1.2-5.4) 10/29/20 04:18 Abs React Lymphs (Man) 0.0 K/mm3 10/29/20 04:18 Monocytes # (Manual) 0.2 K/mm3 (0.0-0.8) 10/29/20 04:18 Eosinophils # (Manual) 0.0 K/mm3 (0.0-0.4) 10/29/20 04:18 Basophils # (Manual) 0.0 K/mm3 (0.0-0.1) 10/29/20 04:18 Metamyelocytes # 0.0 K/mm3 10/29/20 04:18 Myelocytes # 0.0 K/mm3 10/29/20 04:18 Promyelocytes # 0.0 K/mm3 10/29/20 04:18 Blast Cells # 0.0 K/mm3 10/29/20 04:18 WBC Morphology Not Reportable 10/29/20 04:18 Hypersegmented Neuts Not Reportable 10/29/20 04:18 Hyposegmented Neuts Not Reportable 10/29/20 04:18 Hypogranular Neuts Not Reportable 10/29/20 04:18 Smudge Cells Not Reportable 10/29/20 04:18 Toxic Granulation Not Reportable 10/29/20 04:18 Toxic Vacuolation Not Reportable 10/29/20 04:18 Dohle Bodies Not Reportable 10/29/20 04:18 Pelger-Huet Anomaly Not Reportable 10/29/20 04:18 Kaitlynn Rods Not Reportable 10/29/20 04:18 Platelet Estimate Consistent w auto 10/29/20 04:18 Clumped Platelets Not Reportable 10/29/20 04:18 Plt Clumps, EDTA Not Reportable 10/29/20 04:18 Large Platelets Not Reportable 10/29/20 04:18 Giant Platelets Not Reportable 10/29/20 04:18 Platelet Satelliting Not Reportable 10/29/20 04:18 Plt Morphology Comment Not Reportable 10/29/20 04:18 RBC Morphology Not Reportable 10/29/20 04:18 Dimorphic RBCs Not Reportable 10/29/20 04:18 Polychromasia Not Reportable 10/29/20 04:18 Hypochromasia Not Reportable 10/29/20 04:18 Poikilocytosis 1+ 10/29/20 04:18 Anisocytosis Not Reportable 10/29/20 04:18 Microcytosis Not Reportable 10/29/20 04:18 Macrocytosis Not Reportable 10/29/20 04:18 Spherocytes Not Reportable 10/29/20 04:18 Pappenheimer Bodies Not Reportable 10/29/20 04:18 Sickle Cells Not Reportable 10/29/20 04:18 Target Cells 1+ 10/29/20 04:18 Tear Drop Cells Not Reportable 10/29/20 04:18 Ovalocytes Not Reportable 10/29/20 04:18 Helmet Cells Not Reportable 10/29/20 04:18 [place] Bodies Not Reportable 10/29/20 04:18 Pes[place] Rings Not Reportable 10/29/20 04:18 Muna Cells Not Reportable 10/29/20 04:18 Bite Cells Not Reportable 10/29/20 04:18 Crenated Cell Not Reportable 10/29/20 04:18 Elliptocytes Not Reportable 10/29/20 04:18 Acanthocytes (Spur) Not Reportable 10/29/20 04:18 Rouleaux Not Reportable 10/29/20 04:18 Hemoglobin C Crystals Not Reportable 10/29/20 04:18 Schistocytes Not Reportable 10/29/20 04:18 Malaria parasites Not Reportable 10/29/20 04:18 Fermin Bodies Not Reportable 10/29/20 04:18 Hem Pathologist Commnt No 10/29/20 04:18 Sodium 138 mmol/L (137-145) 10/29/20 04:18 Potassium 4.2 mmol/L (3.6-5.0) D 10/29/20 04:18 Chloride 103.8 mmol/L (98-107) 10/29/20 04:18 Carbon Dioxide 25 mmol/L (22-30) 10/29/20 04:18 Anion Gap 13 mmol/L 10/29/20 04:18 BUN 9 mg/dL (9-20) 10/29/20 04:18 Creatinine 0.9 mg/dL (0.8-1.3) 10/29/20 04:18 Estimated GFR > 60 ml/min 10/29/20 04:18 BUN/Creatinine Ratio 10 % 10/29/20 04:18 Glucose 136 mg/dL (75-100) H 10/29/20 04:18 Calcium 9.1 mg/dL (8.4-10.2) 10/29/20 04:18 Total Bilirubin 0.30 mg/dL (0.1-1.2) 10/29/20 04:18 AST 16 units/L (5-40) 10/29/20 04:18 ALT 11 units/L (7-56) 10/29/20 04:18 Alkaline Phosphatase 74 units/L (35-129) 10/29/20 04:18 Total Protein 7.0 g/dL (6.3-8.2) 10/29/20 04:18 Albumin 4.0 g/dL (3.9-5) 10/29/20 04:18 Albumin/Globulin Ratio 1.3 % 10/29/20 04:18 Acevedo/IV: Voiding Method Urinal Active Medications - Current Medications Current Medications: Generic Name Dose Route Start Last Admin Trade Name Freq PRN Reason Stop Dose Admin Acetaminophen 650 mg 10/28/20 21:19 Acetaminophen 325 Mg Tab PO Q4H PRN Pain MILD(1-3)/Fever >100.5/CHIANG Albuterol 2.5 mg 10/28/20 23:12 Albuterol 2.5 Mg/3 Ml Nebu IH Q4HRT PRN Shortness Of Breath Albuterol/Ipratropium 1 ampul 10/28/20 23:45 10/29/20 07:29 Ipratropium/Albuterol Sulfate 3 Ml Ampul.Neb IH 1 ampul QIDRT PANAKJ Administration Famotidine 20 mg 10/28/20 22:00 10/28/20 22:59 Famotidine 20 Mg/2 Ml Inj IV 20 mg BID PANKAJ Administration Heparin Sodium (Porcine) 5,000 unit 10/28/20 22:00 10/28/20 22:59 Heparin 5,000 Unit/1 Ml Vial SUB-Q 5,000 unit Q12HR PANKAJ Administration Hydromorphone HCl 0.5 mg 10/28/20 21:19 Hydromorphone 1 Mg/1 Ml Inj IV Q3H PRN Pain , Severe (7-10) Sodium Chloride 1,000 mls @ 75 mls/hr 10/28/20 21:30 10/28/20 22:58 Nacl 0.9% 1000 Ml IV 75 mls/hr DIRECT PANKAJ Administration Levofloxacin/Dextrose 750 mg in 150 mls @ 100 mls/hr 10/28/20 22:00 10/28/20 23:00 Levaquin 750mg/150ml IV 100 mls/hr Q24HR PANKAJ Administration Protocol Methylprednisolone Sodium Succinate 60 mg 10/28/20 22:00 10/29/20 06:13 Methylprednisolone Sod Succinate 40 Mg/1 Ml Inj IV 60 mg Q8HR PANKAJ Administration Montelukast Sodium 10 mg 10/28/20 22:00 10/28/20 22:59 Montelukast 10 Mg Tab PO 10 mg QHS PANKAJ Administration Ondansetron HCl 4 mg 10/28/20 21:19 Ondansetron 4 Mg/2 Ml Inj IV Q8H PRN Nausea And Vomiting Oxycodone/Acetaminophen 1 tab 10/28/20 21:19 Oxycodone /Acetaminophen 5-325mg Tab PO Q6H PRN Pain, Moderate (4-6) Sodium Chloride 10 ml 10/28/20 22:00 10/28/20 22:59 Sodium Chloride 0.9% 10 Ml Flush Syringe IV 10 ml BID PANKAJ Administration Sodium Chloride 10 ml 10/28/20 21:19 Sodium Chloride 0.9% 10 Ml Flush Syringe IV PRN PRN LINE FLUSH
[2020-10-29] MEDS: HEPARIN 5,000 UNIT/1 ML VIAL SUB-Q SCH (12:57)
[2020-10-29] MEDS: FAMOTIDINE 20 MG/2 ML INJ IV SCH (13:00)
[2020-10-29 18:12] VITALS: BP 119/63
[2020-10-29] MEDS: SODIUM CHLORIDE 0.9% 1000 ML 1,000 ML IV SCH (18:14)
--- NOTE | 2020-10-29 18:52 | Discharge Summary ---
Providers - Providers Date of Admission: 10/28/20 17:22 Date of discharge: 10/29/20 Attending physician: MALGORZATA DANIELS MD Primary care physician: REGISTERED NURSE CARDIAC Hospitalization Reason for admission: acute asthma exacerbation, acute hypoxic respiratory failure Condition: Stable Pertinent studies: Chest x-ray Hospital course: History of present illness: 20-year-old man with history of asthma and no previous history of intubations and not taking any medications comes in for severe shortness of breath and wheezing for the last 3 days. Unable to brace. As dry cough. Sometimes cough is further mucus sputum. No fever or chills. No exposure to coronavirus. Not taking any medications. Not on Singulair for prevention of asthma. Patient only has albuterol inhaler at home. Is not on any nebulizers at home. No exacerbating or relieving factors. Hospital course Patient is admitted to the floor and was treated according to asthma protocol and patient showed significant improvement. Patient saturating well on room air after ambulation. Wheezing markedly improved. Patient said he is feeling better. Patient discharged with Medrol pack, nebulizer treatment, singular and advised to follow-up with his primary care physician. Patient was hemodynamically stable at the time of discharge. Appropriate medications were reconciled at the time of discharge. Management plan was explained in detail and was in agreement with the plan of care. Disposition: DC-01 TO HOME OR SELFCARE Final Discharge Diagnosis (Prints w/discharge instructions): Acute hypoxic respiratory failure. Acute asthma exacerbation Time spent for discharge: 32 minutes - Discharge Diagnoses (1) Acute respiratory failure with hypoxia Status: Acute (2) Status asthmaticus Status: Acute Qualifiers: Asthma severity: severe Core Measure Documentation - Palliative Care Palliative Care/ Comfort Measures: Not Applicable - Core Measures Any of the following diagnoses?: none Exam - Physical Exam Narrative exam: Patient was saturating well on room air The patient appeared well nourished and normally developed. Vital signs as documented. Head exam is unremarkable. No scleral icterus . Neck is without jugular venous distension, thyromegaly, or carotid bruits. Lungs clear to auscultation bilaterally Cardiac exam reveals regular rate and Rhythm. Abdominal exam reveals normal bowel sounds, nontender, no organomegaly. Extremities are nonedematous and both femoral and pedal pulses are normal. 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 No focal weakness. - Constitutional Vitals: Temp Pulse Resp BP Pulse Ox 98.3 F 111 H 16 119/63 96 10/29/20 16:20 10/29/20 16:20 10/29/20 16:20 10/29/20 16:20 10/29/20 16:20 Plan Activity: no restrictions Weight Bearing Status: Full Weight Bearing Diet: regular Follow up with: PRIMARY CARE, [Primary Care Provider] - 7 Days Prescriptions: Montelukast [Singulair] 10 mg PO QHS #30 tablet methylPREDNISolone [Medrol 4MG DOSEPAK (21 tabs)] 4 mg PO DAILY #1 tab.ds.pk Albuterol Sulfate [Proair Respiclick] 90 mcg IH Q4HR PRN #2 aer.pow.ba PRN Reason: Wheezing
== END 2020-10-29 20:35 | disposition home or self-care (01) ==
LOC: ED 14:13 → 3A 17:22
PROVIDERS: ADMIT Internal Medicine; ATTEND Internal Medicine
DX: J96.01 Acute respiratory failure with hypoxia (principal); J45.902 Unspecified asthma with status asthmaticus; Z79.82 Long term (current) use of aspirin
CPT/HCPCS: 36415; 71045; 80048; 80053; 85025; 94640; 96361; 96365; 96366; 96367; 96372; 96375; 96376; 99284; G0378; J0171; J1644; J1956; J2920; J2930; J3475; J7030; 85007; 94644